=== PATIENT | female | born 1995 | race Caucasian/White ===

== ENCOUNTER 2017-04-07 07:31 | Inpatient (IN) | payer BC, OTHER ==
[~2017-04-07] VITALS: Ht 157.5 cm; Wt 61.2 kg
--- NOTE | 2017-04-08 09:55 | NUR ---
Intake Assessment; Patient is a 21 year old female, AOX4, presented to [facility] to detoxify from Heroin and Xanax. Patient is the primary source of information. Patient's admitting vital signs are as follows; BP 136/63, HR 86, respirations 18, Temperature of 98.0, Spo2 of 95% on room air. Patient appears very anxious, crying and appears very nervous about detox process. Educated patient regarding unit protocols and policies, patient verbalized understanding. Will closely monitor patient.
[2017-04-08] MEDS ORDERED: ONDANSETRON ODT 4 MG TAB.RAPDIS SL PRN (10:45)
[2017-04-08] MEDS ORDERED: ACETAMINOPHEN 325 MG TABLET PO PRN (10:45)
[2017-04-08] MEDS ORDERED: LOPERAMIDE HCL 2 MG CAPSULE PO PRN ×2 (10:45)
[2017-04-08] MEDS ORDERED: DICYCLOMINE HCL 20 MG TABLET PO PRN (10:45)
[2017-04-08] MEDS ORDERED: MAG HYDROX/AL HYDROX/SIMETH 30 ML LIQUID UDC PO PRN (10:45)
[2017-04-08] MEDS ORDERED: ONDANSETRON 4 MG/2 ML VIAL IM PRN (10:45)
[2017-04-08] MEDS ORDERED: LORAZEPAM 1 MG TABLET PO PRN ×2 (10:45)
[2017-04-08] MEDS ORDERED: MAGNESIUM HYDROXIDE 30 ML LIQUID UDC PO PRN (10:45)
[2017-04-08] MEDS ORDERED: METHOCARBAMOL 750 MG TABLET PO PRN (10:45)
[2017-04-08] MEDS ORDERED: diphenhydrAMINE 50 MG CAPSULE PO PRN (10:45)
[2017-04-08] MEDS ORDERED: MIRALAX 17 GM POWD.PACK PO PRN (10:45)
[2017-04-08] MEDS ORDERED: LORAZEPAM 2 MG/1 ML VIAL IM PRN (10:45)
[2017-04-08] MEDS ORDERED: BUPRENORPHINE HCL 2 MG TAB.SUBL SL PRN (10:45)
[2017-04-08 11:05] LABS: *URINE HCG, QUAL NEGATIVE (NEGATIVE)
[2017-04-08] MEDS ORDERED: PARO25TA16 PO (11:07)
[2017-04-08] MEDS ORDERED: TRAZ-147 PO (11:07)
[2017-04-08] MEDS ORDERED: QUET50TA PO (11:07)
[2017-04-08] MEDS ORDERED: CLON0.2T PO (11:07)
[2017-04-08] MEDS: LORAZEPAM 1 MG TABLET PO SCH ×4 (11:19→20:00)
[2017-04-08 12:00] VITALS: BP 121/86
--- NOTE | 2017-04-08 12:50 | NUR ---
PRN medication; Patient is complaining of stomach cramps and abdominal spasms. PRN Bentyl 20mg PO given for stomach cramps, will continue to monitor patient for effectiveness of medication.
[2017-04-08] MEDS ORDERED: BUPRENORPHINE HCL 2 MG TAB.SUBL SL ONE ×2 (13:00→18:00)
--- NOTE | 2017-04-08 13:16 | NUR ---
Admission note; Patient is a 21 year old female, AOX4, presented to [facility] to detoxify from Heroin and Xanax. Patient is the primary source of information. Patient's admitting vital signs are as follows; BP 136/63, HR 86, respirations 18, Temperature of 98.0, Spo2 of 95% on room air. Patient appears very anxious, crying and appears very nervous about Detox process. Educated patient regarding unit protocols and policies, patient verbalized understanding. Discussed substance use history. Patient started using Xanax when she was 20 years old and progressed immediately to daily use, ranging from 6-8mg /day, last used 04/07/17 at 8PM. Patient also reported using Heroin ranging 4-7 grams via smoke inhalation for about 3-5 days, last used 04/07/17 at 8PM. Discussed medical and psychiatric history. Patient reported history of anxiety, depression, bipolar disorder, asthma, anemia, IBS, Chlamydia and patient was treated, 5 months ago. Patient does not have a primary care physician. Patients psychiatrist is Dr. Mojica. Patient has never been to a formal detox treatment before. Skin check done with no significant findings. Home medications to be reconciled by MD. Patient is on fall and seizure precautions. Bed in lowest position, call light within reach. Will continue to monitor patient. Addendum: 04/09/17 at 1051 by TWAN HOLT RN Pt states she does not smoke marijuana regularly, urine is positive for cannabinoids.
--- NOTE | 2017-04-08 13:40 | NUR ---
PRN medication; Patient is reported nausea and 1 emesis. PRN Zofran 4mg ODT given to prevent further vomiting. Will closely monitor patient for effectiveness of medication.
--- NOTE | 2017-04-08 14:40 | NUR ---
Re-assessment; PRN Zofran ODT noted to be ineffective. Patient is still complaining of nausea.
[2017-04-08 14:58] LABS: *AMPHETAMINE, URINE NEGATIVE (NEGATIVE); *BARBITURATE, URINE NEGATIVE (NEGATIVE); *CANNABINOID, URINE POSITIVE (NEGATIVE); *COCCAINE, URINE NEGATIVE (NEGATIVE); *OPIATE, URINE POSITIVE (NEGATIVE); *PHENCYCLIDINE SCREEN,URINE NEGATIVE (NEGATIVE)
--- NOTE | 2017-04-08 14:58 | NUR ---
PRN medication; Patient had another episode of vomiting, PRN Zofran 4mg IM given to left deltoid area. Will closely monitor patient for effectiveness of medication.
--- NOTE | 2017-04-08 15:28 | NUR ---
Re-assessment; No further episode of emesis noted. PRN medication noted to be effective.
[2017-04-08 16:00] VITALS: BP 140/92
[2017-04-08 17:36] LABS: ALANINE AMINOTRANSFERASE 23 U/L (14-59); ALKALINE PHOSPHATASE 65 U/L (50-136); ASPARTATE AMINOTRANSFERASE 17 U/L (15-37); BILIRUBIN,TOTAL 0.2 mg/dL (0.2-1.0); CARBON DIOXIDE 27 mmol/L (21-32); CHLORIDE 104 mmol/L (98-107); CREATININE 0.8 mg/dL (0.6-1.3); GLUCOSE 98 mg/dL (74-106); MAGNESIUM 1.7 mg/dL (1.8-2.4); POTASSIUM 4.4 mmol/L (3.5-5.1); TOTAL PROTEIN, SERUM 6.9 g/dL (6.4-8.2); UREA NITROGEN, BLOOD 12 mg/dL (7-18)
[2017-04-08 17:37] LABS: BASOPHILS # (AUTO) 0.1 K/uL (0.0-8.0); BASOPHILS % (AUTO) 0.7 % (0.0-2.0); EOSINOPHILS # (AUTO) 0.1 K/uL (0.0-0.7); EOSINOPHILS % (AUTO) 0.7 % (0.0-7.0); HEMATOCRIT 39.8 % (37-47); HEMOGLOBIN 13.4 G/DL (12.0-16.0); LYMPHOCYTES # (AUTO) 2.5 K/UL (0.8-4.8); LYMPHOCYTES % (AUTO) 26.2 % (20.5-74.5); MEAN CORPUSCULAR HEMOGLOBIN 28.7 UUG (27.0-31.0); MEAN CORPUSCULAR HGB CONC 34 g/dL (32.0-37.0); MEAN CORPUSCULAR VOLUME 85.2 FL (81.0-99.0); NEUTROPHILS # (AUTO) 5.8 K/UL (1.8-8.9); NEUTROPHILS % (AUTO) 62.4 % (31.5-64.5); PLATELET COUNT (AUTO) 280 K/UL (150-450); RED BLOOD CELL COUNT(AUTO) 4.67 MIL/UL (4.2-5.4); WHITE BLOOD COUNT (AUTO) 9.5 K/UL (4.0-11.2)
[2017-04-08] MEDS ORDERED: LORAZEPAM 1 MG TABLET PO ONE (18:00)
[2017-04-08 18:07] LABS: ETHANOL < 3 MG/DL (0-0)
[2017-04-08] MEDS: PROMETHAZINE HCL 25 MG/1 ML VIAL IM PRN (18:23)
--- NOTE | 2017-04-08 18:32 | NUR ---
PRN medication and one time orders. Patient reported another episode of emesis. PRN Phenergan IM given to right deltoid area. Patient tolerated procedure well. Patient also received one time dose of Ativan 1mg PO for CIWA of 8 and one dose of Subutex 4mg SL for COWS of 8 per MD order. Will closely monitor patient.
--- NOTE | 2017-04-08 18:58 | NUR ---
End of shift note; Patient is AOX4. Patient remained compliant with treatment plan and medication regime. Patient started having withdrawal symptoms manifested by nausea and vomiting, anxiety, chills, restlessness, tremors with last COWS score os 8 last CIWA score of 8 at 1600. Medications were effective in reducing withdrawal symptoms. All safety measures secured. Patient to be re-assessed by night nurse. Met all needs.
--- NOTE | 2017-04-08 18:58 | NUR ---
START OF SHIFT NOTE: Patient is 21 year old female admitted to [facility] on 04/08/2017 for Benzodiazepines and Opioid dependence, continue ordered 5 Day Ativan and 4 Day Subutex Taper. Patient is tolerated well without ASE. Patient remains compliant with treatment, medications, and diet regime. Patient reports NKA. Patient is on Full Code, Regular Diet, Fall and Seizures Precautions. Patient denies Seizures History. PMH: Anxiety, Depression, Bipolar disorder, Asthma, Anemia, Chlamydia, IBS, Heroin and Xanax dependence. Past Surgery History: . Patient reports Substance use history: "Xanax PO uses 6 -8 mg every day during one year in this pattern. Last taken 6 mg PO on 04/07/2017. Heroin via smoke inhalation 4-7 grams every day during one week. Last smoked 4 grams 0n 04/07/2017". Patient denies treatments/detox before. Upon endorsement, patient assessed in her room. Patient is alert and oriented x4. Speech is soft and clear. Patient denies SI/HI. COWS 11, CIWA 11. Patient presented with anxiety, agitation, nervousness, restlessness, enlarged pupils, generalized body aching, yawning, sweating, and tremors that can be felt. VS: T: 97.9, HR: 76, BP: 119/79, RR: 18, RA O2Sat 98%, generalized body aches pain level"8" by 0-10 adult pain scale. Respirations are unlabored and even. Patient denies chest pain and SOB. Lung Sounds are clear thoroughly. Abdomen is soft and non-tender. Bowel Sounds are active in all 4 quadrants. Skin is intact, warm and dry to touch. All needs met. Safety measures in place: Call light within reach, bed in lowest position and locked, padded rails up x2. Patient is endorsed by day shift nurse, report received. Will continue to monitor closely.
--- NOTE | 2017-04-08 19:02 | NUR ---
RE-ASSESSMENT Patient denies Nausea and vomiting. PRN Phenergan IM administrated by day shift nurse @1832 for nausea and vomiting was effective. All needs met. Safety measures in place: Call light within reach, bed in lowest position and locked, padded rails up x2. Will continue to monitor closely.
--- NOTE | 2017-04-08 19:32 | NUR ---
RE-ASSESSMENT COWS 11, CIWA 11. Patient presented with anxiety, agitation, nervousness, restlessness, enlarged pupils, generalized body aching, yawning, sweating, and tremors that can be felt. PRN Ativan 1mg 1tab PO - One time dose administrated @1832 by day shift nurse per MD order for CIWA 8, and PRN Subutex 4mg SL - One time dose administrated @1832 by day shift nurse per MD order for COWS 8 - were not effective. All needs met. Safety measures in place: Call light within reach, bed in lowest position and locked, padded rails up x2. Will continue to monitor closely.
[2017-04-08 20:00] VITALS: BP 119/79
[2017-04-08] MEDS: QUETIAPINE FUMARATE 100 MG TABLET PO SCH (20:00)
[2017-04-08] MEDS: TRAZODONE 100 MG TABLET PO SCH (20:00)
[2017-04-08] MEDS: GABAPENTIN 300 MG CAPSULE PO SCH (20:00)
--- NOTE | 2017-04-08 20:00 | NUR ---
PRN TYLENOL 650 MG 2 TAB PO ADMINISTRATION Patient c/o generalized body aches pain level "9/10". PRN Tylenol 650 mg 2 tab PO administrated as ordered with full glass of water. Patient tolerated well. All needs met. Safety measures in place: Call light within reach, bed in lowest position and locked, padded rails up x2. Patient is endorsed by day shift nurse, report received. Will continue to monitor closely.
[2017-04-08] MEDS: PAROXETINE HCL 20 MG TABLET PO SCH (20:01)
[2017-04-08] MEDS ORDERED: INFLUENZA VACCINE 2017-2018 0.5 ML DISP.SYRIN IM ONE (21:00)
[2017-04-08] MEDS ORDERED: MAGNESIUM OXIDE 400 MG TABLET PO ONE (21:00)
[2017-04-08] MEDS ORDERED: BUPRENORPHINE HCL 2 MG TAB.SUBL SL SCH (21:00)
--- NOTE | 2017-04-08 21:00 | NUR ---
RE-ASSESSMENT Patient is sleeping. Respirations even and unlabored. RR 16. PRN Tylenol 650 mg 2 tab PO for headache administrated @1999 was effective. All needs met. Safety measures on place. Call light within reach, bed in lowest position and locked, padded rails up bilaterally rails up bilaterally. Will continue to monitor closely.
--- NOTE | 2017-04-08 22:50 | NUR ---
PRN ATIVAN 2 MG 2 TAB ADMINISTRATED FOR CIWA 16.
--- NOTE | 2017-04-08 23:50 | NUR ---
RE-ASSESSMENT Patient is sleeping. Respirations even and unlabored. RR 14. PRN Ativan 2 mg 2 tab PO administrated for CIWA 16 @2250 was effective. All needs met. Safety measures on place. Call light within reach, bed in lowest position and locked, padded rails up bilaterally rails up bilaterally. Will continue to monitor closely.
[2017-04-09] VITALS: BP 145/71
[2017-04-09 04:00] VITALS: BP 112/62
--- NOTE | 2017-04-09 07:16 | NUR ---
END OF SHIFT Patient is 21 year old female admitted to [facility] on 04/08/2017 for medically supervised safety withdrawal from Benzodiazepines and Opioid , continue ordered 5 Day Ativan and 4 Day Subutex Taper. Patient is tolerated well without ASE. Patient remains compliant with treatment, medications, and diet regime. Patient reports NKA. Patient is on Full Code, Regular Diet, Fall and Seizures Precautions. Patient denies Seizures History. PMH: Anxiety, Depression, Bipolar disorder, Asthma, Anemia, Chlamydia, IBS, Heroin and Xanax dependence. Past Surgery History: . Last COWS 7, CIWA 4 @0400. Patient presented with anxiety, agitation, nervousness, restlessness, enlarged pupils, sweating, and tremors that can be felt. Patient denies SI/HI. VS @0400: T: 97.9, HR: 76, BP: 119/79, RR: 18, RA O2Sat 98%, generalized body aches pain level"8" by 0-10 adult pain scale. Respirations are unlabored and even. Patient denies chest pain and SOB. Abdomen is soft and non-tender. Bowel Sounds are active in all 4 quadrants. Patient denies nausea and vomiting. Skin is intact, warm and dry to touch. PRN Tylenol 650 mg 2 tab PO for headache administrated @2000 and PRN Ativan 2 mg 2 tab PO administrated for CIWA 16 @2250 were effective. Encouraged fluids intake as tolerated. Encouraged to attending groups activities. All needs met. Safety measures on place. Call light within reach, bed in lowest position and locked, padded rails up bilaterally. Patient endorsed to day shift nurse. Report given.
--- NOTE | 2017-04-09 07:55 | NUR ---
START OF SHIFT Received report from fence erector supervisor nurse. 21 year old female patient admitted on 04/08/17 for xanax and heroin withdrawals. Pt has been started on a 5 day Ativan and 4 day Subutex taper and is tolerating well. S/S of withdrawals are being managed by ordered medications. Py reports hx of anxiety, depression, bipolar, asthma, anemia, and IBS, and hx of chlamydia. PRN Ativan and Tylenol administered and effective. CIWA went from 16 to 4. COWS are 4. V/S remain WNL. Pt slept for 7 hours. All needs met at this time, safety measures are in place, will continue to monitor.
[2017-04-09 08:02] VITALS: BP 127/70
[2017-04-09] MEDS: PROMETHAZINE HCL 25 MG/1 ML VIAL IM PRN (08:41)
--- NOTE | 2017-04-09 08:41 | NUR ---
PRN PHENERGAN Pt c/o of nausea and small episode of emesis, pt states zofran is ineffective and phenergan helps more. PRN Phenergan IM administered as ordered. Will reassess.
[2017-04-09] MEDS ORDERED: TUBERCULIN,PURIF.PROT.DERIV. 5 TU/0.1 ML TEST ID ONE (09:00)
--- NOTE | 2017-04-09 09:11 | NUR ---
REASSESSMENT Pt states Phenergan was effective. No episode of emesis after administration and denies nausea at this time.
[2017-04-09] MEDS: GABAPENTIN 300 MG CAPSULE PO SCH ×3 (09:39→20:43)
[2017-04-09] MEDS: BUPRENORPHINE HCL 2 MG TAB.SUBL SL SCH ×3 (09:39→20:41)
[2017-04-09] MEDS: LORAZEPAM 1 MG TABLET PO SCH ×3 (09:39→20:43)
--- NOTE | 2017-04-09 10:14 | NUR ---
Patient was in activity room and accidentally slipped and fell. Floor noted to be wet from EVS cleaning. Pt states she is not hurt. Client was helped up by activity therapist Michael the it systems administrator helped client up. When nurse asked to assess client, client states "oh yeah I forgot about that. I am okay, I didn't hurt myself." aware.
[2017-04-09 12:29] VITALS: BP 130/102
[2017-04-09] MEDS: CLONIDINE HCL 0.1 MG TABLET PO PRN ×2 (14:39→22:43)
[2017-04-09] MEDS: IBUPROFEN 600 MG TABLET PO PRN (14:42)
--- NOTE | 2017-04-09 14:44 | NUR ---
PRN Clonidine/Motrin Pt c/o 10/16 headache, PRN Motrin 600mg administered as ordered. PRN Clonidine administered for agitation, anxiety and hot and cold chills, will reassess.
--- NOTE | 2017-04-09 15:44 | NUR ---
REASSESSMENT Pt states medication was effective. Pt appears less agitated and denies head pain.
[2017-04-09 17:07] VITALS: BP 98/58
--- NOTE | 2017-04-09 18:58 | NUR ---
START OF SHIFT NOTE: Patient is 21 year old female admitted to [facility] on 04/08/2017 for Benzodiazepines and Opioid dependence. Patient continues 5 Day Ativan and 4 Day Subutex Taper. She is tolerated well without ASE. Patient remains compliant with treatment, medications, and diet regime. Patient reports NKA, is on Full Code, Regular Diet, Fall and Seizures Precautions. Patient denies Seizures History. PMH: Anxiety, Depression, Bipolar disorder, Asthma, Anemia, Chlamydia, IBS, Heroin and Xanax dependence. Past Surgery History: . Patient assessed in her room. alert and oriented x4. Speech is soft and clear. Patient denies SI/HI. COWS 9, CIWA 9: Patient presented with anxiety, agitation, nervousness, restlessness, enlarged pupils, generalized body aching, headache, sweating, and tremors. VS: T: 97.5, HR: 89, BP: 125/83, RR: 18, RA O2Sat 95%, generalized body aches pain level "6" by 0-10 adult pain scale. Lung Sounds are diminished thoroughly. Patient 's dry cough, c/o chest pain. No wheezing, rales noted. Heart rate is regular, no murmur noted. Abdomen is soft and non-tender. Bowel Sounds are active in all 4 quadrants. Skin is intact, warm and dry to touch. Encouraged fluids intake as tolerated. Encouraged to attending groups activities. All needs met. Safety measures in place: Call light within reach, bed in lowest position and locked, padded rails up x2. Patient is endorsed by day shift nurse, report received. Will continue to monitor closely.
--- NOTE | 2017-04-09 18:58 | NUR ---
END OF SHIFT Endorsed to night nurse. 21 year old female patient admitted on 04/08/17 for xanax and heroin withdrawals. Pt has been started on a 5 day Ativan and 4 day Subutex taper and is tolerating well. S/S of withdrawals are being managed by ordered medications. Pt attends groups and activities as tolerated. Pt did fall in the recreation room, no injuries noted, pt denies pain. Pt education provided on cessation of smoking and hep c. Most recent COWS 7 and CIWA 5. PRN Motrin, Clonidine and Phenergan administered and effective. V/S remain WNL. All needs met at this time, safety measures are in place, night nurse will continue to monitor.
[2017-04-09 20:00] VITALS: BP 125/83
[2017-04-09] MEDS: TRAZODONE 100 MG TABLET PO SCH (20:42)
[2017-04-09] MEDS: PAROXETINE HCL 20 MG TABLET PO SCH (20:42)
[2017-04-09] MEDS: QUETIAPINE FUMARATE 100 MG TABLET PO SCH (20:42)
[2017-04-09] MEDS: PRAZOSIN HCL 1 MG CAPSULE PO SCH (20:42)
--- NOTE | 2017-04-09 21:47 | NUR ---
. Respiratory Therapist called for Ordered Breathing treatment.
[2017-04-09] MEDS: IPRATROPIUM BROMIDE 0.5 MG/2.5 ML NEBU NEB PRN (22:25)
--- NOTE | 2017-04-09 22:25 | NUR ---
Breathing treatment done as ordered by Respiratory Therapist. Patient tolerated well. All needs met. Safety measures in place: Call light within reach, bed in lowest position and locked, padded rails up x2. Patient is endorsed by day shift nurse, report received. Will continue to monitor closely.
[2017-04-09] MEDS ORDERED: IPRATROPIUM BROMIDE 0.5 MG/2.5 ML NEBU ONE (22:30)
--- NOTE | 2017-04-09 22:43 | NUR ---
PRN CLONIDINE 0.1 MG 1 TAB PO ADMINISTRATION Patient c/o increased anxiety. CIWA 7. VS: BP 122/78, HR 83, T 97.9, RR 18, RA O2Sat 99%. PRN Clonidine 0.1 mg 1 tab PO administrated for anxiety as ordered with full glass of water. Patient tolerated well. All needs met. Safety measures on place. Call light within reach, bed in lowest position and locked, padded rails up bilaterally. Will continue to monitor closely.
--- NOTE | 2017-04-09 23:43 | NUR ---
RE-ASSESSMENT Patient is sleeping. Respirations even and unlabored. RR 16. PRN Clonidine PO was effective. All needs met. Safety measures on place: Call light within reach, bed in lowest position and locked, padded rails up bilaterally. Will continue to monitor closely.
[2017-04-10] VITALS: BP 99/59
[2017-04-10 04:00] VITALS: BP 97/62
--- NOTE | 2017-04-10 07:09 | NUR ---
END OF SHIFT Patient is 21 year old female admitted to [facility] on 04/08/2017 for medically supervised safety withdrawal from Benzodiazepines and Opioid, continue ordered 5 Day Ativan and 4 Day Subutex Taper. Patient is tolerated well without ASE. Patient reports NKA. Patient is on Full Code, Regular Diet, Fall and Seizures Precautions. Patient denies Seizures History. PMH: Anxiety, Depression, Bipolar disorder, Asthma, Anemia, Chlamydia, IBS, Heroin and Xanax dependence. Past Surgery History: . Last COWS 6, CIWA 3 @0400. Patient presented with anxiety, restlessness, enlarged pupils, barely sweating, and tremors that can be felt. Patient denies N/V/D. COWS/CIWA taken when patient 's awake. Patient denies SI/HI. VS @0400: T: 98.1, HR: 90, BP: 97/62, RR: 16, RA O2Sat 98%, pain level "0/10". Inhalation Tx done by RT @2225 as ordered. Respirations unlabored and even. Patient denies chest pain and SOB. Abdomen is soft and non-tender. Skin is intact, warm and dry to touch. PRN Clonidine 0.1 mg 1 tab PO administrated for anxiety @2243 was effective. Patient remains compliant with treatment, medications, and diet regime Patient slept 5 hours, intake 1,100 ml, voided x2. Patient attended group activities. Encouraged fluids intake as tolerated. All needs met. Safety measures on place. Call light within reach, bed in lowest position and locked, padded rails up bilaterally. Patient endorsed to day shift nurse. Report given.
--- NOTE | 2017-04-10 07:30 | NUR ---
start of shift note: received pt from assistant casino shift manager nurse, pt is in stable condition pt is admitted [facility] for benzo/opiate withdrawal/dependence. pt's last ciwa is 4 and last cows 6, pt slept 5 hrs. pt without adverse reaction to medications. will continue to monitor pt for any changes and continue to meet pt's needs.
[2017-04-10] MEDS ORDERED: BUPRENORPHINE HCL 2 MG TAB.SUBL SL SCH (09:00)
[2017-04-10] MEDS ORDERED: LORAZEPAM 1 MG TABLET PO SCH ×2 (09:00→21:00)
[2017-04-10 09:06] LABS: HEPATITIS B SURFACE AG Negative (Negative)
[2017-04-10] MEDS: GABAPENTIN 300 MG CAPSULE PO SCH ×3 (09:22→21:28)
[2017-04-10] MEDS: LORAZEPAM 1 MG TABLET PO SCH ×3 (09:22→16:32)
[2017-04-10 10:00] VITALS: BP 115/62
[2017-04-10] MEDS: DICYCLOMINE HCL 20 MG TABLET PO SCH ×3 (10:45→21:27)
[2017-04-10] MEDS: METHOCARBAMOL 750 MG TABLET PO SCH ×2 (12:11→21:29)
[2017-04-10] MEDS: BUPRENORPHINE HCL 2 MG TAB.SUBL SL SCH ×2 (15:05→21:29)
[2017-04-10 15:35] VITALS: BP 110/62
[2017-04-10 17:26] VITALS: BP 121/84
--- NOTE | 2017-04-10 18:55 | NUR ---
end of shift nurse: pt is in stable condition no s/s of pain or discomfort. pt is admitted to [facility] for benzo/opiate withdrawal/dependence. pts last ciwa 3 and cows 3. pt tolerated taper well no A/R noted. pt attended all groups and activities throughout the shift.
[2017-04-10 20:00] VITALS: BP 152/89
--- NOTE | 2017-04-10 20:00 | NUR ---
1999 Patient received awake, alert and just returning to her room # [id number] from [facility] in recreation room. Gait is steady, sure. Patient responds to nurse's greeting and introduction with good eye contact, and " Hi, are you my nurse now?" Patient is oriented to person, place, day, date, time and her personal situation. Patient's color is pink and her skin is clean, dry and intact. Patient states that she feels a little shakey and she has " been having some withdrawal symptoms, like flashes, at times, but otherwise she is feeling " okay I guess". Patient states that she has been eating her regular diet meal trays as well as she feels up to eating and she has been taking various fluids ad kelly with no gastric issues so far. Patient denies any pain presently and she voices no requests for anything at this time. Vital signs are: 98.2-105-18 152/89, O2 Sat 98%, COWS 5 , CIWA 4 . Patient was admitted on 04/08/17 for Xanax and Heroin withdrawal and she is currently on both a 5-Day Ativan taper and a 4-Day Subutex taper, which she has been apparently tolerating well thus far. Fall/seizure precautions continue. Patient is cooperative and verbally appropriate when interacting with nurse at this time. Bed is locked and in lowest position, bed rails are up X [address] on bed.
[2017-04-10] MEDS: IPRATROPIUM BROMIDE 0.5 MG/2.5 ML NEBU NEB PRN (21:10)
--- NOTE | 2017-04-10 21:10 | NUR ---
Respiratory nebulizer treatment given by R.T. to patient per patient's request. Patient's lungs are clear bilaterally per auscultation and patient exhibits no SOB or any other signs of any respiratory distress, prior to this treatment.
[2017-04-10] MEDS: TRAZODONE 100 MG TABLET PO SCH (21:27)
[2017-04-10] MEDS: PRAZOSIN HCL 1 MG CAPSULE PO SCH (21:28)
[2017-04-10] MEDS: PAROXETINE HCL 20 MG TABLET PO SCH (21:28)
[2017-04-10] MEDS: QUETIAPINE FUMARATE 100 MG TABLET PO SCH (21:29)
[2017-04-11] VITALS: BP 140/79
--- NOTE | 2017-04-11 | NUR ---
V/S are: 98-90-12 140/79, O2 Sat 98%. Patient too sleepy to do COWS, CIWA assessments at this time. COWS,CIWA to be done Q 4hr while awake.
--- NOTE | 2017-04-11 04:00 | NUR ---
0400 Patient sleeping soundly with eyes closed and respirations even, unlabored at 12. V/S, COWS, CIWA deferred at this time.
--- NOTE | 2017-04-11 06:30 | NUR ---
0630 Patient slept a total of 7 hours and she had 3 voids and no stools. Total intake was 798 ml p.o. No prn medications given to patient this shift. V/SS afebrile, last COWS 5, last CIWA 4 at 1999. Patient is presently resting comfortably in stable condition, with eyes closed and respirations quiet, even, unlabored at 12.
[2017-04-11] MEDS: METHOCARBAMOL 750 MG TABLET PO SCH ×3 (06:41→20:40)
--- NOTE | 2017-04-11 07:30 | NUR ---
start of shift note: received pt from shift supervisor melting nurse, pt is in stable condition no s/s of pain or discomfort. pt is admitted to [facility] for benzo/opiate withdrawal/dependence. pt's last cows 5 and ciwa 4. pt without SOB or difficulty breathing. pt without adverse reaction to medication. will continue to monitor pt for any changes and continue to meet pt's needs
[2017-04-11 09:00] VITALS: BP 129/60
[2017-04-11] MEDS: DICYCLOMINE HCL 20 MG TABLET PO SCH ×3 (09:44→20:38)
[2017-04-11] MEDS: BUPRENORPHINE HCL 2 MG TAB.SUBL SL SCH ×3 (09:44→20:40)
[2017-04-11] MEDS: LORAZEPAM 1 MG TABLET PO SCH ×3 (09:44→20:38)
[2017-04-11] MEDS: GABAPENTIN 300 MG CAPSULE PO SCH ×3 (09:44→20:39)
[2017-04-11] MEDS: IBUPROFEN 600 MG TABLET PO PRN (10:34)
--- NOTE | 2017-04-11 11:19 | NUR ---
PRN administration: pt verbalized headache and stomach cramps. prn 600mg motrin administered pain level 8/10
[2017-04-11 13:30] VITALS: BP 162/100
[2017-04-11] MEDS: CLONIDINE HCL 0.1 MG TABLET PO PRN (13:37)
--- NOTE | 2017-04-11 13:39 | NUR ---
PRN administration: pt noted with increased B/P and HR of 162/100 and hr of 116. prn clonidine was administered will re-assess effectiveness of medication
--- NOTE | 2017-04-11 14:27 | NUR ---
Therapist prompted client about group times. Client stated she would attend all groups today.
[2017-04-11 17:09] VITALS: BP 124/87
--- NOTE | 2017-04-11 18:46 | NUR ---
end of shift note: pt is in stable condition no s/s of pain or discomfort. pt is admitted to [facility] for benzo/opiate withdrawal/dependence. pt's last cows 5 and ciwa 3. pt tolerated medications well, no a/r noted. pt attended groups and activities throughout the group.
[2017-04-11 20:00] VITALS: BP 133/87
--- NOTE | 2017-04-11 20:00 | NUR ---
1999 Patient received awake, alert and standing in her doorway # [id number], talking to selected patients. Upon seeing nurse, patient states, " Hi, Can I have my meds now or when I get back from having a cigarette downstairs?" Patient is oriented to person, place, day, date, time and her personal situation. Patient's color is pink and her skin is clean, warm, dry and intact. Patient denies any pain and she voices no general requests at this time. Vital signs are: 98.2-108-16 133/87, O2 Sat 98%, COWS 6, CIWA 4. Patient states that she is eating her regular diet meals and snacks, drinking various fluids ad kelly and trying to attend and participate in as many [facility] groups as she can, along with following her therapeutic program as much as possible. Patient was admitted on 04/08/17 for Xanax and Alcohol withdrawal and she is currently on both a 5-Day Ativan taper and a 4-Day Subutex taper, which she has apparently been tolerating well so far. Patient is cooperative and verbally appropriate when interacting with nurse, however she also presents both somewhat anxious and depressed simultaneously, when speaking about herself. Bed is locked and in lowest position, bed rails are up X 2 and call light on bed.
[2017-04-11] MEDS: TRAZODONE 100 MG TABLET PO SCH (20:38)
[2017-04-11] MEDS: QUETIAPINE FUMARATE 100 MG TABLET PO SCH (20:39)
[2017-04-11] MEDS: PRAZOSIN HCL 1 MG CAPSULE PO SCH (20:39)
[2017-04-11] MEDS: PAROXETINE HCL 20 MG TABLET PO SCH (20:39)
--- NOTE | 2017-04-11 20:46 | NUR ---
PRN MEDICATION: Prn MOM 30 ml p.o. given per request for c/o constipation.
[2017-04-11] MEDS: IPRATROPIUM BROMIDE 0.5 MG/2.5 ML NEBU NEB PRN (21:03)
--- NOTE | 2017-04-11 21:03 | NUR ---
Respiratory Therapist in to give patient requested neb treatment. Patient has no signs of any respiratory distress and her lungs are clear bilaterally per auscultation at this time.
--- NOTE | 2017-04-12 | NUR ---
Patient sleeping soundly at this time and she does not wish to be awakened for V/S to be done at this time. COWS, CIWA ordered Q 4hr while patient is awake. V/S, COWS, CIWA deferred.
--- NOTE | 2017-04-12 04:00 | NUR ---
Patient continues to sleep soundly, comfortably, with respirations quiet, even at 12. V/S, COWS, CIWA deferred
[2017-04-12] MEDS: METHOCARBAMOL 750 MG TABLET PO SCH ×3 (05:55→21:39)
--- NOTE | 2017-04-12 06:30 | NUR ---
0630 Patient slept a total of 8 hours and she had 3 voids and no stools. Total intake was 1,296 ml p.o. Prn medication given noted separately per floor protocol. V/SS afebrile, last COWS 6, last CIWA 4 at 1999. Patient is presently resting comfortably in stable condition, with eyes closed and respirations even at 12.
--- NOTE | 2017-04-12 07:30 | NUR ---
Start of shift note; Received report from night nurse. Patient is a 31 year old female admitted on 04/08/17 for Benzodiazepine and Opiate dependence. Patient was placed on a 5 day Ativan and 4 day Subutex taper, no adverse reactions noted. Patient reported history of anxiety, depression, bipolar, asthma, anemia, IBS , , anemia. Patient slept for 8 hours last night. Patient's last COWS is 6 and last CIWA of 4. All safety measures secured. Will continue to monitor patient.
[2017-04-12 08:00] VITALS: BP 104/58
[2017-04-12] MEDS: BUPRENORPHINE HCL 2 MG TAB.SUBL SL SCH ×2 (08:32→21:49)
[2017-04-12] MEDS: LORAZEPAM 1 MG TABLET PO SCH ×2 (08:32→21:40)
[2017-04-12] MEDS: DICYCLOMINE HCL 20 MG TABLET PO SCH ×3 (08:32→21:39)
[2017-04-12] MEDS: GABAPENTIN 300 MG CAPSULE PO SCH ×3 (08:32→21:41)
[2017-04-12] MEDS ORDERED: BUPRENORPHINE HCL 2 MG TAB.SUBL SL SCH (09:00)
[2017-04-12] MEDS ORDERED: NICOTINE POLACRILEX 4 MG GUM-PK OF TEN BC PRN (10:45)
[2017-04-12] MEDS: NICOTINE 14 MG/24HR PATCH TD SCH (11:31)
[2017-04-12 12:00] VITALS: BP 132/87
[2017-04-12 12:55] LABS: *AMPHETAMINE, URINE NEGATIVE (NEGATIVE); *BARBITURATE, URINE NEGATIVE (NEGATIVE); *CANNABINOID, URINE POSITIVE (NEGATIVE); *COCCAINE, URINE NEGATIVE (NEGATIVE); *OPIATE, URINE NEGATIVE (NEGATIVE); *PHENCYCLIDINE SCREEN,URINE NEGATIVE (NEGATIVE)
--- NOTE | 2017-04-12 14:32 | NUR ---
PRN; Patient requested for nicotine gum for nicotine cravings. Educated patient regarding the importance of not smoking to prevent nicotine toxicity, verbalized understanding.
[2017-04-12 16:00] VITALS: BP 126/80
--- NOTE | 2017-04-12 18:29 | NUR ---
End of shift note; Patient is AOX4. Patient is a 31 year old female admitted on 04/08/17 for Benzodiazepine and Opiate dependence. Patient was placed on a 5 day Ativan and 4 day Subutex taper, no adverse reactions noted. Patient reported history of anxiety, depression, bipolar, asthma, anemia, IBS , , anemia. Patient remained compliant with treatment plan and medication regime. Medications noted to be effective in reducing withdrawal symptoms. All safety measures secured. Met all needs.
[2017-04-12 20:00] VITALS: BP 142/72
--- NOTE | 2017-04-12 20:17 | NUR ---
Start of shift note Received report from night nurse. Patient is a 31 year old female admitted on 04/08/17 for Benzodiazepine and Opiate dependence. Patient was placed on a 5 day Ativan and 4 day Subutex taper, no adverse reactions noted. Patient reported history of anxiety, depression, bipolar, asthma, anemia, IBS , , anemia. During the rounds 193, Px is so anxious and suspicious, complained of nausea, stomach cramps, agitation and body aches 9/10 as verbalized. All safety measures secured. Bed on lowest position, side rails up 2x, call light within reach. We'll continue to monitor patient.
[2017-04-12] MEDS: IPRATROPIUM BROMIDE 0.5 MG/2.5 ML NEBU NEB PRN (20:35)
--- NOTE | 2017-04-12 20:35 | NUR ---
PRN Atrovent Neb Px requested for breathing tx. RT department informed, given breathing tx as PRN med. We'll continue to monitor.
[2017-04-12] MEDS: PAROXETINE HCL 20 MG TABLET PO SCH (21:39)
[2017-04-12] MEDS: TRAZODONE 100 MG TABLET PO SCH (21:40)
[2017-04-12] MEDS: QUETIAPINE FUMARATE 100 MG TABLET PO SCH (21:40)
[2017-04-12] MEDS: CLONIDINE HCL 0.1 MG TABLET PO SCH (21:40)
[2017-04-12] MEDS: PRAZOSIN HCL 1 MG CAPSULE PO SCH (21:41)
[2017-04-13] VITALS: BP 104/60
--- NOTE | 2017-04-13 | NUR ---
COWS and CIWA deferred COWS and CIWA deferred due to the px is asleep. To assess if the px is awake per doctor's order. We'll continue to monitor.
[2017-04-13 04:00] VITALS: BP 98/59
[2017-04-13] MEDS: METHOCARBAMOL 750 MG TABLET PO SCH ×3 (06:00→21:56)
--- NOTE | 2017-04-13 07:06 | NUR ---
End of shift note 31 year old female admitted on 04/08/17 for Benzodiazepine and Opiate dependence. Patient was placed on a 5 day Ativan and 4 day Subutex taper, no adverse reactions noted. Patient reported history of anxiety, depression, bipolar, asthma, anemia, IBS , , anemia. During the shift, Px is so anxious and suspicious, complained of nausea, stomach cramps, agitation and body aches 01/16 as verbalized. At 2034, Px requested for breathing tx. RT department informed, given breathing tx as PRN med. Oral intake of 1,500 ml, voided 2x, no BM. All safety measures secured. Bed on lowest position, side rails up 2x, call light within reach. We'll continue to monitor patient.
--- NOTE | 2017-04-13 07:56 | NUR ---
Start of shift note; Received report from night nurse. Patient is a 31 year old female admitted on 04/08/17 for Benzodiazepine and Opiate dependence. Patient was placed on a 5 day Ativan and 4 day Subutex taper, no adverse reactions noted. Patient reported history of anxiety, depression, bipolar, asthma, anemia, IBS , , anemia. Patient slept for 9 hours last night. Patient's last COWS is 6 and last CIWA of 7. All safety measures secured. Will continue to monitor patient.
[2017-04-13 08:00] VITALS: BP_SYST 97; BP_SYST 98; BP_DIAS 59; BP_DIAS 67
[2017-04-13] MEDS: NICOTINE 14 MG/24HR PATCH TD SCH (09:00)
[2017-04-13] MEDS ORDERED: LORAZEPAM 1 MG TABLET PO SCH (09:00)
[2017-04-13] MEDS ORDERED: BUPRENORPHINE HCL 2 MG TAB.SUBL SL SCH (09:00)
[2017-04-13] MEDS: GABAPENTIN 300 MG CAPSULE PO SCH ×3 (09:43→20:20)
[2017-04-13] MEDS: DICYCLOMINE HCL 20 MG TABLET PO SCH ×3 (09:43→20:22)
[2017-04-13 12:00] VITALS: BP 122/76
[2017-04-13 16:00] VITALS: BP 115/78
--- NOTE | 2017-04-13 18:20 | NUR ---
End of shift note; Patient is AOX4. Patient is a 31 year old female admitted on 04/08/17 for Benzodiazepine and Opiate dependence. Patient was placed on a 5 day Ativan and 4 day Subutex taper, no adverse reactions noted. Patient reported history of anxiety, depression, bipolar, asthma, anemia, IBS , , anemia. Patient remained compliant with treatment plan and medication regime. Patients last COWS is 2 and last CIWA 2. Medications noted to be effective in reducing withdrawal symptoms. All safety measures secured. Patient is medically cleared for discharge tomorrow. Met all needs.
--- NOTE | 2017-04-13 18:20 | NUR ---
START OF SHIFT NOTE: Patient is a 21 year old female admitted to [facility] on[facility]2017 for Benzodiazepines and Opioid dependence. Patient completed ordered 5 Day Ativan and 4Day Subutex. Patient tolerated well without ASE. Patient remains compliant with treatment, medications, and diet regime. Upon endorsement, patient is in her room alert and oriented x4. Speech is clear and soft. COWS 8, CIWA 9. Patient presented with anxiety, agitation, nervousness , headache, tremors that can be felt, barely sweating, and restlessness. VS: T: 98.9, HR: 84,BP:110/62, O2SAT: 98%, RR:18, headache pain level "9/10". Respirations are even and unlabored. Lung Sounds clear throughout. Patient denies cough, SOB, and chest pain. Heart Rate is regular, no murmur noted. Bowel Sounds are active in all 4 quadrants. Skin is intact, warm, and dry to touch. Encouraged to fluids intake as tolerated. Encouraged to attend groups activities. Patient is scheduled for discharging tomorrow, on 04/14/2017 in AM. All needs met. Safety measures in place: Call light within reach, bed is locked and in the lowest position, padded bed rails up x2. Patient endorsed by day shift nurse. Report received. Will continue to monitor closely. Addendum: 04/13/17 at 2125 by KAYLI MCCARTHY RN Patient reports NKA, is on Full Code, Regular Diet, Fall and Seizures Precautions. Patient denies Seizures History. PMH: , Anxiety, Asthma, Bipolar disorder, Chlamydia, Depression, IBS.
[2017-04-13] MEDS: IBUPROFEN 600 MG TABLET PO PRN (19:36)
--- NOTE | 2017-04-13 19:36 | NUR ---
PRN MOTRIN 600 MG 1 TAB PO ADMINISTRATION Patient c/o headache:'01/16". PRN Motrin 600 mg 1 tab administrated as ordered with full glass of water. Patient tolerated well. All needs met. Safety measures in place: Call light within reach, bed is locked and in the lowest position, padded bed rails up x2. Will continue to monitor closely.
[2017-04-13 20:00] VITALS: BP 110/62
[2017-04-13] MEDS: QUETIAPINE FUMARATE 100 MG TABLET PO SCH (20:20)
[2017-04-13] MEDS: TRAZODONE 100 MG TABLET PO SCH (20:21)
[2017-04-13] MEDS: PRAZOSIN HCL 1 MG CAPSULE PO SCH (20:21)
[2017-04-13] MEDS: PAROXETINE HCL 20 MG TABLET PO SCH (20:22)
[2017-04-13] MEDS: CLONIDINE HCL 0.1 MG TABLET PO SCH (20:22)
--- NOTE | 2017-04-13 20:36 | NUR ---
RE-ASSESSMENT Patient reports that headache pain level now "0/10". PRN Motrin 600 mg 1 tab administrated @0936 was effective. All needs met. Safety measures in place: Call light within reach, bed is locked and in the lowest position, padded bed rails up x2. Will continue to monitor closely.
[2017-04-13] MEDS ORDERED: GABA-534 PO (22:24)
[2017-04-13] MEDS ORDERED: DICY20TA28 PO (22:24)
[2017-04-13] MEDS ORDERED: IBUP-1955 PO (22:24)
[2017-04-13] MEDS ORDERED: METH-406 PO (22:24)
[2017-04-13] MEDS ORDERED: NICO4GUM38 BC (22:24)
--- NOTE | 2017-04-14 | NUR ---
VS REFUSED AND COWS/CIWA DEFERRED Patient refused to be woken up for 0000 VS. COWS/CIWA deferred d/t patient sleeping to assess while patient is awake. Safety measures on place by hospital policy: Call light within reach, bed in lowest position and locked, side rails up x2. Will continue to monitor closely.
[2017-04-14 04:00] VITALS: BP 99/63
[2017-04-14] MEDS: METHOCARBAMOL 750 MG TABLET PO SCH (06:22)
--- NOTE | 2017-04-14 07:13 | NUR ---
END OF SHIFT NOTE: Patient is a 21 year old female admitted to [facility] on04/08/2017 for Benzodiazepines and Opioid dependence. Patient completed ordered 5 Day Ativan and 4Day Subutex Taper. Patient tolerated well without ASE. Patient remains compliant with treatment, medications, and diet regime. Patient reports NKA. Patient is on Full Code, Regular Diet, Fall and Seizures Precautions. Patient denies Seizures History. PMH: Anxiety, Depression, Bipolar disorder, Asthma, Anemia, Chlamydia, IBS, Heroin and Xanax dependence. Past Surgery History: . Last COWS decreased from 8 @2000 to 3 @0400, CIWA decreased from 9 @2000 to 3 @0400. Patient presented with anxiety, agitation, nervousness, restlessness, and sweating. Last VS @0400: T:98.4, HR: 73, BP: 99/63, RA SPO2 100%, RR 19, pain level "0/10". Patient denies SI/HI. Respirations unlabored and even. Patient denied cough, SOB, and chest pain. Abdomen is soft and non-tender. Skin is intact, warm, and dry to touch. No PRN Medications administrated last manufacturing supervisor 2nd shift. Patient slept 9 hours, intake 1,850 ml, voided x3. Encouraged fluids intake as tolerated. Patient attended groups activities. Patient is scheduled for discharging today, on 04/14/2017 @AM. All needs met. Safety measures in place: Call light within reach, bed is locked and in the lowest position, padded bed rails up x2. Patient endorsed to day shift nurse. Report given.
--- NOTE | 2017-04-14 07:30 | NUR ---
Start of Shift Report from the night nurse: pt is a 21 y/o female here for Opiate r/t Heroin 4-7g daily for 1 week and Benzo r.t Xanax 6-8mg PO daily for 1 yr; Ativan and Subutex tapers are completed and pt has new order for d/c today. Pt is a full code, regular diet, NKA, fall and seizure precautions order. HHx: Anxiety, depression, Bipolar, Asthma, Anemia, IBS, Chlamydia and , fist time doing detox. Pt is stable. V/S stable. No PRN med given last night. Last COWS 3 CIWA 3. Pt is awake in room. Will cont. to monitor the pt.
[2017-04-14 08:00] VITALS: BP 104/50
[2017-04-14] MEDS: DICYCLOMINE HCL 20 MG TABLET PO SCH (08:14)
[2017-04-14] MEDS: GABAPENTIN 300 MG CAPSULE PO SCH (08:14)
[2017-04-14] MEDS: NICOTINE 14 MG/24HR PATCH TD SCH (08:20)
[2017-04-14] MEDS: IPRATROPIUM BROMIDE 0.5 MG/2.5 ML NEBU NEB PRN (09:56)
--- NOTE | 2017-04-14 10:00 | NUR ---
Discharge Pt is A&O x 4 ambulatory independently. Features symmetrical, PERRLA 3mm, no ALBA, no N/V or dizziness noted. Pt denies chest pain, bilateral pulses present, V/S stable. Pt denies pain at this time. Clear bilateral lung sounds on U/L lobes and no SOB noted. Pt denies ab discomfort and dysuria. Pt voided this morning. Skin is intact with tracts on BLUE's. No w/d s/sx present. Pt is given belongings, d/c summary packet with written Rx, no home meds brought. Pt is chaperoned to the lobby to the [employer] [facility] to the [email or web address].
== END 2017-04-14 10:00 | disposition other institution (70) | DRG 895 ==
LOC: SRC 04-08 09:17
PROVIDERS: ADMIT Internal Medicine; ATTEND Internal Medicine
PROC: HZ2ZZZZ Detoxification Services for Substance Abuse Treatment (ICD-10-PCS; principal; 2017-04-08)
PROC: HZ41ZZZ Group Counseling for Substance Abuse Treatment, Behavioral (ICD-10-PCS; 2017-04-09)
PROC: HZ31ZZZ Individual Counseling for Substance Abuse Treatment, Behavioral (ICD-10-PCS; 2017-04-11)
DX: F13.232 Sedative, hypnotic or anxiolytic dependence with withdrawal with perceptual disturbance (principal); E83.42 Hypomagnesemia; I15.9 Secondary hypertension, unspecified; F31.30 Bipolar disorder, current episode depressed, mild or moderate severity, unspecified; F17.210 Nicotine dependence, cigarettes, uncomplicated; G47.00 Insomnia, unspecified; F90.9 Attention-deficit hyperactivity disorder, unspecified type; F41.9 Anxiety disorder, unspecified; F11.23 Opioid dependence with withdrawal; Z59.0 Homelessness; Z82.79 Family history of other congenital malformations, deformations and chromosomal abnormalities; Z81.8 Family history of other mental and behavioral disorders; Z91.89 Other specified personal risk factors, not elsewhere classified; Z91.5 Personal history of self-harm; G47.50 Parasomnia, unspecified; Z59.1 Inadequate housing
CPT/HCPCS: 36415; 70030-TC; 80307; 80346; 80349; 80361; 83735; 84703; 85025; 86580; 86592; 86705; 86803; 87340; 87806; 90686; 94640; G0480; J2405; J2550; J3590; Q0162

== ENCOUNTER 2017-06-09 15:01 | Emergency (ER) | payer BC, OTHER ==
[~2017-06-09] VITALS: Ht 152.4 cm; Wt 61.2 kg
[~2017-06-09 15:01] MED LIST: CLON0.2T PO; DICY20TA28 PO; GABA-534 PO; IBUP-1955 PO; METH-406 PO; NICO4GUM38 BC; PARO25TA16 PO; QUET50TA PO; TRAZ-147 PO
--- NOTE | 2017-06-09 16:15 | NUR ---
santiago azar. dr blair moses.
== END 2017-06-09 16:15 | disposition left against medical advice (07) ==
LOC: ER 15:01
DX: R07.89 Other chest pain (principal); G47.00 Insomnia, unspecified; I15.9 Secondary hypertension, unspecified; J45.909 Unspecified asthma, uncomplicated; F90.9 Attention-deficit hyperactivity disorder, unspecified type; F17.200 Nicotine dependence, unspecified, uncomplicated
CPT/HCPCS: 99281; A4663